=== PATIENT | female | born 2000 | race Caucasian/White ===

== ENCOUNTER 2019-08-16 11:15 | Emergency (ER) | payer SELFPAY ==
[2019-08-16] MEDS ORDERED: Dexamethasone 4 mg/ml Vial ONE (11:23)
[2019-08-16] MEDS ORDERED: predniSONE 20 MG TAB ONE (11:23)
[2019-08-16] MEDS ORDERED: diphenhydrAMINE 50 MG/ML VIAL ONE (11:23)
== END 2019-08-16 12:50 | disposition home or self-care (01) ==
LOC: ERS 11:15
DX: T78.40XA Allergy, unspecified, initial encounter (principal)
CPT/HCPCS: 96374; 96375; J1100; J1200; J7512

== ENCOUNTER 2019-08-27 10:37 | Emergency (ER) | payer SELFPAY ==
[2019-08-27] MEDS ORDERED: Ondansetron ODT 8 MG TAB ONE (11:48)
[2019-08-27 12:03] LABS: Bacteria/HPF None Seen HPF (None Seen); Bilirubin Negative (Negative); Blood, Urine Negative (Negative); Clarity Clear (Clear); Glucose, Urine (Dipstick) Normal (Negative); Leukocyte 25 Leu/uL (Negative); Nitrite Negative (Negative); Pregnancy Test - Urine (BHCG) Negative (Negative); Pregu Control Background? CLEAR/WHITE (CLR/WHITE); Pregu Control Bar Appear? YES (CONTROL BAR); Protein, Urine (Dipstick) Negative (Neg-Trace); RBC/HPF 0-3 HPF (0-3); Specific Gravity 1.025 (1.002-1.036); Squamous Epithelial 0-3 HPF (0-3); Urobilinogen Normal mg/dL (Less than 2); WBC/HPF 0-3 HPF (0-3)
== END 2019-08-27 12:35 | disposition home or self-care (01) ==
LOC: ERS 10:37
DX: R11.2 Nausea with vomiting, unspecified (principal)
CPT/HCPCS: 81003; 81015; 81025; 99284

== ENCOUNTER 2019-10-13 13:42 | Emergency (ER) | payer SELFPAY ==
[2019-10-13] MEDS ORDERED: predniSONE 20 MG TAB ONE (14:49)
== END 2019-10-13 16:23 | disposition home or self-care (01) ==
LOC: ERS 13:42
DX: J45.901 Unspecified asthma with (acute) exacerbation (principal); F41.9 Anxiety disorder, unspecified
CPT/HCPCS: 94640; J7512; J7620